=== PATIENT | female | born 1965 | race African-American/Black ===

== ENCOUNTER 2016-05-29 10:21 | Observation (INO) | payer MEDICARE, OTHER ==
[~2016-05-29 10:21] MED LIST: *UNABLE1; ABILIFY10 PO; ACET500CAP PO; AMLODIPINE PO; ASA5GR PO; ASAB PO; ASABAYER PO; BEN25 PO; BENTYL20 PO; CAT1 PO; CELEXA10 PO; COMP10B PO; COREG PO; COREG12 PO; COREG25 PO; COREG6 PO; EFFEXXR37 PO; FLEX PO; FLUOXETINE20 MG OR; GINKGO BILO2 PO; HEMORRHOID TOP; IMOD PO; LEXAPRO10 PO; LIPITOR40 PO; LISINOPRIL PO; LISINOPRIL40 MG PO; LOM PO; LORT7 PO; METOCLOPRAM5 MG OR; MSIMMR15 PO; NORV10 PO; OXYCOD PO; PR12.5 PO; PR25 PO; PRIN5 PO; PROAMAT5 PO; PROZAC PO; QUESTRAN4 GM PO; REM15 PO; RENVELA800 MG PO; SANDOSTATIN SC; SENSIPAR30 M1 PO; SENSIPAR60 MG PO; SEVE800T PO; SKELAXIN8 PO; SPIRO25 PO; SPIRONOLACTONE PO; SUTENT PO; SUTENT12.5 MG PO; SUTENT25 MG PO; TUMSROLL PO; ULTRAM50 PO; VALIUM10 MG PO; VITAMIN D2000 UNIT PO; ZANTAC150 MG PO
[2016-05-29 12:23] LABS: BASOPHILS 0.3 %; BASOPHILS ABSOLUTE 0.02 10/3/uL (0.0-0.16); EOSINOPHILS 2.9 %; EOSINOPHILS ABSOLUTE 0.18 10/3/uL (0.0-0.53); HEMATOCRIT 33.8 % (36.0-48.0); HEMOGLOBIN 10.7 g/dL (12.0-16.0); IMMATURE GRANULOCYTES 0.5 %; IMMATURE GRANULOCYTES ABSOLUTE 0.03 10/3/uL (0.0-0.11); LYMPHOCYTES 26.4 %; LYMPHOCYTES ABSOLUTE 1.63 10/3/uL (0.67-4.30); MEAN CORPUS HGB CONC 31.7 g/dL (32.0-36.0); MEAN CORPUSCULAR HEMOGLOB 37.2 pg (26.0-34.0); MEAN PLATELET VOLUME 9.9 fL (9.2-13.0); MONOCYTES 8.3 %; MONOCYTES ABSOLUTE 0.51 10/3/uL (0.21-1.20); NEUTROPHILS 61.6 %; NEUTROPHILS ABSOLUTE 3.81 10/3/uL (2.02-8.40); PLATELET COUNT 131 10/3/uL (150-400); RBC DISTRIBUTION WIDTH 14.3 % (12.0-16.0); RED CELL COUNT 2.88 10/6/uL (4.0-5.6); WHITE BLOOD CELLS 6.2 10/3/uL (4.5-10.5)
[2016-05-29 12:24] LABS: MANUAL DIFF NO %; MEAN CORPUSCULAR VOLUME 117.4 fL (80-100)
[2016-05-29 12:32] LABS: A/G RATIO 1.1 (0.7-1.9); ALBUMIN 3.7 G/DL (3.5-5.0); ALKALINE PHOSPHATASE 93 U/L (45-117); CALCIUM, SERUM 8.7 MG/DL (8.5-10.4); CHLORIDE, SERUM 106 MMOL/L (96-112); GLOBULIN 3.5 G/DL (2.5-4.1); POTASSIUM, SERUM 4.2 MMOL/L (3.5-5.3); SGOT(AST) 20 U/L (5-40); SGPT(ALT) 31 U/L (5-65); SODIUM, SERUM 141 MMOL/L (135-148); TOTAL BILIRUBIN 0.7 MG/DL (0-1.2); TOTAL PROTEIN 7.2 G/DL (6.0-8.5)
[2016-05-29 12:33] LABS: BUN (BLOOD UREA NITROGEN) 14 MG/DL (6-23); CO2 (CARBON DIOXIDE) 27 MMOL/L (24-34); CREATININE 5.93 MG/DL (0.55-1.02); GFR AFRICAN AMERICAN 9 ML/MIN (>=60); GFR NON AFRICAN AMERICAN 8 ML/MIN (>=60); GLUCOSE, SERUM 90 MG/DL (60-99)
[2016-05-29 13:12] LABS: HYPOCHROMIA 1+ (3-10/OIF) (0-2/OIF); PLATELET ESTIMATE SLT DEC (ADEQUATE)
[2016-05-30 05:16] LABS: BASOPHILS 0.1 %; BASOPHILS ABSOLUTE 0.01 10/3/uL (0.0-0.16); EOSINOPHILS 1.8 %; EOSINOPHILS ABSOLUTE 0.13 10/3/uL (0.0-0.53); HEMATOCRIT 30.5 % (36.0-48.0); IMMATURE GRANULOCYTES 0.1 %; IMMATURE GRANULOCYTES ABSOLUTE 0.01 10/3/uL (0.0-0.11); LYMPHOCYTES 13.7 %; LYMPHOCYTES ABSOLUTE 0.97 10/3/uL (0.67-4.30); MEAN CORPUS HGB CONC 32.8 g/dL (32.0-36.0); MEAN CORPUSCULAR HEMOGLOB 37.9 pg (26.0-34.0); MEAN CORPUSCULAR VOLUME 115.5 fL (80-100); MONOCYTES 6.6 %; MONOCYTES ABSOLUTE 0.47 10/3/uL (0.21-1.20); NEUTROPHILS 77.7 %; NEUTROPHILS ABSOLUTE 5.48 10/3/uL (2.02-8.40); PLATELET COUNT 129 10/3/uL (150-400); RBC DISTRIBUTION WIDTH 14.3 % (12.0-16.0); RED CELL COUNT 2.64 10/6/uL (4.0-5.6); WHITE BLOOD CELLS 7.1 10/3/uL (4.5-10.5)
[2016-05-30 05:19] LABS: MANUAL DIFF NO %
[2016-05-30 05:34] LABS: ALBUMIN 3.4 G/DL (3.5-5.0); ALKALINE PHOSPHATASE 88 U/L (45-117); CALCIUM, SERUM 8.6 MG/DL (8.5-10.4); CHLORIDE, SERUM 105 MMOL/L (96-112); CO2 (CARBON DIOXIDE) 27 MMOL/L (24-34); DIRECT BILIRUBIN 0.1 MG/DL (0.0-0.4); GFR AFRICAN AMERICAN 6 ML/MIN (>=60); GFR NON AFRICAN AMERICAN 5 ML/MIN (>=60); GLUCOSE, SERUM 98 MG/DL (60-99); INDIRECT BILIRUBIN(NOT ORDER) 0.5 MG/DL (0.1-0.9); POTASSIUM, SERUM 4.6 MMOL/L (3.5-5.3); SGOT(AST) 28 U/L (5-40); SGPT(ALT) 37 U/L (5-65); SODIUM, SERUM 142 MMOL/L (135-148); TOTAL BILIRUBIN 0.6 MG/DL (0-1.2); TOTAL PROTEIN 6.7 G/DL (6.0-8.5)
[2016-05-30 05:37] LABS: BUN (BLOOD UREA NITROGEN) 24 MG/DL (6-23); CREATININE 8.39 MG/DL (0.55-1.02)
[2016-05-30 05:38] LABS: PLATELET ESTIMATE SLT DEC (ADEQUATE); RBC MORPHOLOGY ABN (NORMAL)
== END 2016-05-30 08:05 | disposition home or self-care (01) ==
LOC: CSSUOP 10:21 → RADHOLD 10:25 → SSU1 14:59
PROVIDERS: Internal Medicine Hematology & Oncology; Radiology Diagnostic Radiology
PROC: [UNRECOGNIZED PROCEDURE] (principal; 2016-05-30)
PROC: BW20ZZZ Computerized Tomography (CT Scan) of Abdomen (ICD-10-PCS; 2016-05-30)
PROC: BF25ZZZ Computerized Tomography (CT Scan) of Liver (ICD-10-PCS; 2016-05-30)
DX: C22.8 Malignant neoplasm of liver, primary, unspecified as to type (principal); N18.6 End stage renal disease; Z79.82 Long term (current) use of aspirin; Z79.83 Long term (current) use of bisphosphonates; Z79.899 Other long term (current) drug therapy
CPT/HCPCS: 36246; 37243; 74150; 77778; 78201; 80048; 80053; 80076; 85025; 99152; 99153; A9270-GY; C1769; C1887; C1894; G0378; J2250; J3010; Q9967